=== PATIENT | female | born 1950 | race Two or more races ===

== ENCOUNTER → 2018-11-17 | Outpatient (CLI) | payer MEDICARE ==
[~2018-11-17] MED LIST: AZIT250 PO; CEPH500 PO; CODACE30 PO; CONEST1.25 PO; CYCL10 PO; ESTR.625; ESTR.625 PO; FERR325; LEVSOD137 PO; LEVSOD88 PO; Norco 5-325 Ta1 EACH PO; OXYACE5T PO; PENVK500 PO; Percocet 5-3251 EACH PO; SULTRIDS PO; TRAZ50; TRAZ50 PO
[2018-11-17 13:54] LABS: BASOPHILS ABSOLUTE AUTO 0.03 K/mm3 (0.00-0.23); BASOPHILS PERCENT AUTO 1 % (0-2); EOSINOPHILS ABSOLUTE AUTO 0.09 K/mm3 (0.00-0.68); EOSINOPHILS PERCENT AUTO 3 % (0-6); Hematocrit 34.6 % (33.0-51.0); Hemoglobin 11.3 g/dL (11.5-16.0); IMMATURE GRAN ABSOLUTE AUTO 0.01 K/mm3 (0.00-0.10); IMMATURE GRAN PERCENT AUTO 0 % (0-1); LYMPHOCYTES ABSOLUTE AUTO 1.39 K/mm3 (0.84-5.20); LYMPHOCYTES PERCENT AUTO 47 % (21-46); MONOCYTES ABSOLUTE AUTO 0.32 K/mm3 (0.16-1.47); MONOCYTES PERCENT AUTO 11 % (4-13); Mean Corpuscular HGB 31.5 pg (26.0-34.0); Mean Corpuscular HGB Conc 32.7 g/dL (31.5-36.5); Mean Corpuscular Volume 96 fL (80-100); Mean Platelet Volume 9.5 fL (9.1-12.4); NEUTROPHILS PERCENT AUTO 37 % (41-73); Platelet Count 163 K/mm3 (150-400); RDW Coefficient Variation 12.7 % (11.7-14.2); RDW Standard Deviation 44.5 fL (35.1-46.3); Red Blood Cell Count 3.59 M/mm3 (3.80-5.20); White Blood Cell Count 2.94 K/mm3 (4.00-11.30)
[2018-11-17 14:14] LABS: Alanine Aminotransfer (ALT/SGP 26 U/L (12-78); Albumin/Globulin Ratio 1.1 (0.8-1.8); Alk Phos 63 U/L (40-126); Anion Gap 9 mmol/L (6-16); Aspartate Aminotrans (AST/SGOT 19 U/L (12-37); Bilirubin, Total 0.3 mg/dL (0.1-1.0); Blood Urea Nitrogen 13 mg/dL (8-24); CO2, Blood 29 mmol/L (21-32); Chloride, Blood 104 mmol/L (98-108); Creatinine, Blood 0.81 mg/dL (0.40-1.00); Globulin, Blood 3.6 g/dL (2.2-4.0); Glomerular Filtration Rate >60 (60-); Glucose, Blood 88 mg/dL (70-99); Potassium, Blood 4.3 mmol/L (3.5-5.5); Sodium, Blood 142 mmol/L (136-145); Thyroid Stimulating Hormone 15.679 uIU/mL (0.360-4.800); Total Protein, Blood 7.6 g/dL (6.4-8.2)
== END | disposition home or self-care (01) ==
LOC: LAB SHORT 13:50 → LAB EV 13:50
PROVIDERS: Physician Assistant
DX: E03.9 Hypothyroidism, unspecified (principal)
CPT/HCPCS: 80053; 84443; 85025

== ENCOUNTER 2019-10-30 17:25 | Day surgery (SDC) | payer MEDICARE, OTHER ==
[~2019-10-30] VITALS: Ht 134.6 cm; Wt 51.2 kg
[~2019-10-30 17:25] MED LIST changes: -LEVSOD137 PO; +Synthroid88 MCG PO
[2019-10-30 17:43] LABS: Source, Urine Clean Catch
[2019-10-30 18:04] LABS: Bilirubin, Urine Neg (Neg); Blood, Urine Neg (Neg); Glucose Qualitative, Urine Neg (Neg); Ketones, Urine Neg (Neg); Leukocyte Esterase, Urine Neg (Neg); Nitrite, Urine Neg (Neg); Protein, Urine Neg (Neg); Specific Gravity, Urine 1.015 (1.003-1.022); Urobilinogen, Urine NORM (Normal)
[2019-10-30 18:05] LABS: Appearance, Urine Clear (Clear); Color, Urine Yellow (P-Yellow)
[2019-10-30 18:06] LABS: BASOPHILS ABSOLUTE AUTO 0.03 K/mm3 (0.00-0.23); BASOPHILS PERCENT AUTO 1 % (0-2); EOSINOPHILS ABSOLUTE AUTO 0.07 K/mm3 (0.00-0.68); EOSINOPHILS PERCENT AUTO 2 % (0-6); Hematocrit 34.5 % (33.0-51.0); Hemoglobin 11.2 g/dL (11.5-16.0); IMMATURE GRAN PERCENT AUTO 0 % (0-1); LYMPHOCYTES ABSOLUTE AUTO 1.55 K/mm3 (0.84-5.20); LYMPHOCYTES PERCENT AUTO 37 % (21-46); MONOCYTES ABSOLUTE AUTO 0.33 K/mm3 (0.16-1.47); MONOCYTES PERCENT AUTO 8 % (4-13); Mean Corpuscular HGB 32.2 pg (26.0-34.0); Mean Corpuscular HGB Conc 32.5 g/dL (31.5-36.5); Mean Corpuscular Volume 99 fL (80-100); Mean Platelet Volume 10.3 fL (9.1-12.4); NEUTROPHILS ABSOLUTE AUTO 2.16 K/mm3 (1.96-9.15); NEUTROPHILS PERCENT AUTO 52 % (41-73); Platelet Count 153 K/mm3 (150-400); RDW Coefficient Variation 13.2 % (11.7-14.2); RDW Standard Deviation 47.1 fL (35.1-46.3); Red Blood Cell Count 3.48 M/mm3 (3.80-5.20); White Blood Cell Count 4.14 K/mm3 (4.00-11.30)
[2019-10-30 18:21] LABS: Alanine Aminotransfer (ALT/SGP 82 U/L (12-78); Albumin, Blood 3.6 g/dL (3.4-5.0); Albumin/Globulin Ratio 1.2 (0.8-1.8); Alk Phos 70 U/L (50-136); Anion Gap 5 mmol/L (6-16); Aspartate Aminotrans (AST/SGOT 44 U/L (12-37); Bilirubin, Total 0.5 mg/dL (0.1-1.0); Blood Urea Nitrogen 14 mg/dL (8-24); Bun/Creatinine Ratio 16.9 (12.0-20.0); CO2, Blood 28 mmol/L (21-32); Calcium, Blood 8.8 mg/dL (8.5-10.1); Chloride, Blood 106 mmol/L (98-108); Creatinine, Blood 0.83 mg/dL (0.40-1.00); Globulin, Blood 2.9 g/dL (2.2-4.0); Glomerular Filtration Rate >60 (60-); Glucose, Blood 136 mg/dL (70-99); Potassium, Blood 3.6 mmol/L (3.5-5.5); Sodium, Blood 139 mmol/L (136-145); Total Protein, Blood 6.5 g/dL (6.4-8.2)
[2019-10-30] MEDS ORDERED: NAPR500EC PO (18:36)
[2019-10-30 22:10] LABS: International Normalized Ratio 1.06; Prothrombin Time Results 11.2 Sec (9.7-11.5)
[2019-10-30 23:39] LABS: Creatine Kinase MB 1.8 ng/mL (0.0-3.6); Creatine Kinase MB Index 1.8 (0.0-4.0); Troponin I 0.259 ng/mL (0.000-0.040)
--- NOTE | 2019-10-31 00:04 | NUR ---
PT TO ICU 9 FROM ED. PT ABLE TO INDEPENDENTLY TRANSFER TO ICU BED WITH NO DIFFICULTY. PT SPEAKS [place] PRIMARILY BUT IS ABLE TO UNDERSTAND MODERATE AMOUNT OF MALAY AND SPEAKS "SOME MALAY" PER FAMILY. FAMILY AT BEDSIDE TO ASSIST IN COMPLETING ADMISSION. PT DENIES CHEST PAIN OR ABDOMINAL PAIN AT THIS TIME. PT STATES "THAT MEDICINE MADE ME BETTER, I CAN GO HOME". PT PLEASANT AND COOPERATIVE WITH CARE. CARDIOLOGY CONSULT CALLED, DR. VELA TO SEE PT IN AM. ECHO IN AM. PT AND FAMILY UPDATED ON PT'S STATUS AND PLAN OF CARE. HEPARIN GTT RUNNING INTO 20G LAC @ 13 UNITS/KG/HR (9.9 ML/HR) AT DOSING WT OF 38 KG, MANAGED BY PHARMACY. FAMILY REMAINS AT BEDSIDE, PT DENIES NEEDS AT THIS TIME. SEE FULL ADMISSION HISTORY AND ASSESSMENT.
[2019-10-31 04:10] LABS: BASOPHILS ABSOLUTE AUTO 0.03 K/mm3 (0.00-0.23); BASOPHILS PERCENT AUTO 1 % (0-2); EOSINOPHILS ABSOLUTE AUTO 0.06 K/mm3 (0.00-0.68); EOSINOPHILS PERCENT AUTO 2 % (0-6); Hematocrit 33.1 % (33.0-51.0); Hemoglobin 10.5 g/dL (11.5-16.0); IMMATURE GRAN ABSOLUTE AUTO 0.01 K/mm3 (0.00-0.10); IMMATURE GRAN PERCENT AUTO 0 % (0-1); LYMPHOCYTES ABSOLUTE AUTO 1.31 K/mm3 (0.84-5.20); LYMPHOCYTES PERCENT AUTO 32 % (21-46); MONOCYTES PERCENT AUTO 10 % (4-13); Mean Corpuscular HGB 31.5 pg (26.0-34.0); Mean Corpuscular HGB Conc 31.7 g/dL (31.5-36.5); Mean Corpuscular Volume 99 fL (80-100); Mean Platelet Volume 10.2 fL (9.1-12.4); NEUTROPHILS ABSOLUTE AUTO 2.29 K/mm3 (1.96-9.15); NEUTROPHILS PERCENT AUTO 56 % (41-73); Platelet Count 134 K/mm3 (150-400); RDW Coefficient Variation 13.1 % (11.7-14.2); RDW Standard Deviation 47.8 fL (35.1-46.3); Red Blood Cell Count 3.33 M/mm3 (3.80-5.20)
[2019-10-31 04:32] LABS: Anion Gap 7 mmol/L (6-16); Blood Urea Nitrogen 12 mg/dL (8-24); Bun/Creatinine Ratio 15.2 (12.0-20.0); CO2, Blood 24 mmol/L (21-32); Chloride, Blood 111 mmol/L (98-108); Cholesterol 133 mg/dL (50-200); Creatinine, Blood 0.79 mg/dL (0.40-1.00); Glomerular Filtration Rate >60 (60-); Glucose, Blood 88 mg/dL (70-99); Potassium, Blood 3.8 mmol/L (3.5-5.5); Sodium, Blood 142 mmol/L (136-145); Triglycerides 60 mg/dL (30-160); Very Low Density Lipoprot Chol 12 mg/dL (6-32)
[2019-10-31 04:33] LABS: CHOL/HDL RATIO 2.2; HDL Cholesterol 61 mg/dL (>39); Low Density Lipoprotein Chol 60 mg/dL (0-110)
--- NOTE | 2019-10-31 06:03 | NUR ---
SHIFT SUMMARY NO ACUTE CHANGES SINCE ADMISSION. PT CONTINUES TO DENY CHEST OR ABDOMINAL PAIN AT THIS TIME. PT REPORTS INTERMITTENT TINGLING IN LEFT FOOT THAT BEGAN SEVERAL MONTHS AGO AND SEEMS TO BE WORSENING. PT HAS NOT GOTTEN OUT OF BED AND HAS NOT VOIDED SINCE ADMISSION. PT CURRENTLY SITTING UP IN BED EATING TOAST AND DRINKING WATER. FAMILY REMAINS AT BEDSIDE. ALL VSS. HEPARIN GTT REMAINS AT 13 UNITS/KG/HR. WILL REPORT TO DAYSHIFT NURSE.
--- NOTE | 2019-10-31 07:22 | NUR ---
PT AWAKE IN BED, ASSISTED TO BR; TOLERATED WELL. FAMILY AT BEDSIDE. PT DENIES C/O PAIN TO CHEST, DENIES PRESSURE, DENIES NAUSEA. HEP GTT INCREASED TO 14UNITS PER PHARMACY.
[2019-10-31 07:52] LABS: Creatine Kinase MB 1.8 ng/mL (0.0-3.6); Creatine Kinase MB Index 1.9 (0.0-4.0); Troponin I 0.246 ng/mL (0.000-0.040)
--- NOTE | 2019-10-31 08:24 | NUR ---
PT NOW NPO FOR POSSIBLE ANGIOGRAM. QUESTIONS ANSWERED FROM PT AND PT'S FAMILY. PT WOULD LIKE TO PROCEED WITH ANGIOGRAM BUT HAS MORE QUESTIONS FOR ANIMAL CARE SERVICE WORKER. DR MIRIAN AGUILAR. PT SPEAKS SOME FRENCH BUT PRIMARY LANGUAGE IS TAMAZIGHT. FAMILY AT BEDSIDE TO TRANSLATE. WORD PROCESSOR OPERATOR AT BEDSIDE.
--- NOTE | 2019-10-31 08:57 | NUR ---
PT SPOKE WITH FAMILY AND AND WISHES TO HAVE CODE STATUS CHANGED TO FULL CODE. PURPLE BAND REMOVED; WILL NOTIFY MD
--- NOTE | 2019-10-31 11:40 | NUR ---
Echocardiogram completed.
--- NOTE | 2019-10-31 13:11 | NUR ---
DR VELA UPDATED ON PT'S DECISION TO PROCEED WITH ANGIOGRAM. PT W/O COMPLAINTS VISITING WITH FAMILY. BP IMPROVED. GOOD URINE OUTPUT W LASIX.
--- NOTE | 2019-10-31 14:09 | NUR ---
DR VELA CONSENTED PT FOR R AND L HEART CATH. ECHO RESULTS GIVEN TO PT AND PT'S FAMILY. HEPARIN GTT DC'D PER DR VELA
[2019-10-31 14:53] LABS: Creatine Kinase MB 2.3 ng/mL (0.0-3.6); Creatine Kinase MB Index 1.9 (0.0-4.0); Troponin I 0.259 ng/mL (0.000-0.040)
--- NOTE | 2019-10-31 16:38 | NUR ---
Spiritual Care initial note: Mrs. Zhang appears weak, but smiles easily. He was at bedside and appears quite devoted. Pt states she is hopeful for recovery and asked me to pray. I provided prayer, affirmation of love, and offered continued support.
--- NOTE | 2019-10-31 18:42 | NUR ---
DR VELA CALLED THIS RN FOR UPDATE ON PT. LISINOPRIL TO BE STARTED IN AM. LASIX TO BE CONSIDERED IN AM. PT TO BE SEEN OP BY [facility] FOR SEVERE PULMONARY HTN. PT BACK TO ICU 9 FROM [facility]IMARY SPECIAL EDUCATION TEACHER AT 1844.
--- NOTE | 2019-10-31 20:00 | NUR ---
PT BACK FROM HEART CENTER AT 1844. PT AWAKE, ALERT, ASKING FOR DINNER. REPORT TAKEN AT THIS TIME. TR BAND TO R RADIAL. TEG TO R BRACHIAL. R HAND SLIGHTLY SWOLLEN C/O TO LEFT HAND. HEART CENTER AT BEDSIDE FOR THIS ASSESSMENT. PT DENIES C/O PAIN/NUMBNESS/TINGLING TO R HAND. R HAND WARM, PINK, CAP REFILL <3 SEC. VSS. REPORT GIVEN TO ONCOMING RN RAVIN.
--- NOTE | 2019-10-31 21:28 | NUR ---
ASSUMED CARE OF PT, REPORT RCV'D FROM MAURICE ZHAO. PT BACK FROM TRAVELERS' AID WORKER SITTING UP AND EATING DINNER WITHOUT DIFFICULTY. PT'S FAMILY AT BEDSIDE UPDATED ON PT'S STATUS AND PLAN OF CARE. PT HAS TR BAND ON RIGHT RADIAL WITH 9 CC'S OF AIR, PLACED AT 1815, WILL BEGIN REMOVING AIR @2215. RADIAL SITE SOFT, NONTENDER, DISTAL PULSES/PALLOR WNL, HAND/FINGERS APPEAR SLIGHTLY MORE SWOLLEN THAN LEFT HAND-PER DAYSHIFT NURSE THIS SWELLING REMAINS UNCHANGED SINCE ARRIVING FROM TRAVELERS' AID WORKER. PT REPORTS SLIGHT NUMBNESS IN FINGERS-REMOVED 2 CC AIR. PT ABLE TO MOVE FINGERS WITHOUT DIFFICULTY. RIGHT BRACHIAL ACCESS SITE WITH KRISTA AND CLEAR DRESSING, MINIMAL AMOUNT OF BLEEDING FROM SITE-UNCHANGED SINCE ARRIVAL. DRESSING C/D/I, NO EVIDENCE OF HEMATOMA AT EITHER SITE. PT DENIES CHEST OR ABDOMINAL PAIN OR SHORTNESS OF BREATH, PT REPORTS HEADACHE THAT SHE ATTRIBUTES TO "BEING TIRED". PT GIVEN HER NIGHTLY SLEEPING PILL, TYLENOL AND REPOSITIONED IN BED. SEE FULL SHIFT ASSESSMENT
--- NOTE | 2019-10-31 23:58 | NUR ---
TR BAND OFF. CAP REFILL<3 SECONDS, DISTAL PULSES/PALLOR WNL, NO BLEEDING/HEMATOMA/TENDERNESS. CLEAR DRESSING APPLED AND ARMBOARD REAPPLIED. WILL CONTINUE TO MONITOR.
--- NOTE | 2019-11-01 06:06 | NUR ---
SHIFT SUMMARY NO ACUTE CHANGES OVERNIGHT. PT SLEPT SOUNDLY AND DENIED NEEDS. TR BAND REMOVED AT 0000, ARMBOARD REMAINS IN PLACE. RADIAL SITE SOFT/NONTENDER, DISTAL PULSES/PALLOR WNL, NO BLEEDING OR HEMATOMA NOTICED. RIGHT BRACHIAL SITE REMAINS UNCHANGED FROM BEGINNING OF SHIFT. VSS T/O SHIFT. PT ANXIOUS TO GO HOME. FAMILY REMAINS AT BEDSIDE. WILL REPORT TO DAYSHIFT NURSE.
--- NOTE | 2019-11-01 08:22 | NUR ---
PT AWAKE IN BED EATING BREAKFAST. DENIES ALL COMPLAINTS. DENIES C/O CHEST PAIN/PRESURE/NAUSEA/SOB. RIGHT ARTERIAL SITE WITH OP-SITE C/D/I, NO SWELLING/BLEEDING/PAIN. RIGHT VENOUS BRACHIAL SITE WITH TEG UNCHANGED FROM PEVIOUS ASSESSMENT. HAND REMAINS SLIGHTLY EDEMATOUS; CIRC CHECK WNL, HAND PINK, WARM, CAP REFILL < 3 SEC. PT IS HOPEFUL THAT SHE WILL BE DISCHARGED HOME TODAY.
[2019-11-01] MEDS ORDERED: ACET325 PO (12:25)
[2019-11-01] MEDS ORDERED: Lipitor20 MG PO (12:26)
[2019-11-01] MEDS ORDERED: ASPI81CH PO (12:27)
[2019-11-01] MEDS ORDERED: LISI5 PO (12:27)
[2019-11-01] MEDS ORDERED: METO25 PO (12:28)
--- NOTE | 2019-11-01 13:18 | NUR ---
DR ANN BAUTISTA IN TO SEE PT THIS MID AM. NEW ORDERS TO DISCHARGE HOME IF OKAY WITH CARDIOLOGY. DR VELA CALLED, MESSAGE LEFT W OFFICE. PT SITTING UP IN BED EATING LUNCH AND VISITING W FAMILY. RX'S CALLED INTO [facility] PER PT REQUEST
--- NOTE | 2019-11-01 13:28 | NUR ---
PER DR VELA; PT MAY BE DISCHARGED HOME. MEDICATIONS REVIEWED. CARDIOTHORACIC SURGERY [facility] WILL BE CONTACTING PT THIS WEEK FOR AN APPOINTMENT
--- NOTE | 2019-11-01 16:05 | NUR ---
RX'S CALLED INTO [facility]. FOLLOW UP APPT MADE W [facility] AND PCP. VERBAL AND WRITTEN DC INFO GIVEN ON MEDS, DIET, CHF, MITRAL STENOSIS/REGURG, AORTIC STENOSIS, RADIAL ACCESS. PT EMOTIONAL AND TEARFUL, C/O FEELING DIZZY WITH SOME NUMBNESS TO TOES; PT HYPERVENTILATING. PT CALMED AND REASSURED. PT VERY CONCERNED ABOUT TAKING NEW MEDS. FAMILY AT BEDSIDE AND INVOLVED W EDUCATION. ORTHOSTATIC BP'S TAKEN PT WAS CONCERNED BP MIGHT BE LOW. ORTHOSTATIC PRESSURES AND HEART RATE WNL/STABLE. THIS WAS COMFORTING TO PT. PT CALMED DOWN AND BEGAN PARTICIPATING IN DISCHARGE EDUCATION. PT AND FAMILY INSTRUCTED TO CALL ICU OR PCP WITH ANY QUESTIONS OR CONCERNS. R RADIAL AND R VENOUS SITE REMAIN STABLE. WRIST IMMOBILIZER TO R WRIST. PT DC'D HOME IN STABLE CONDITION IN CARE OF HER FAMILY AT 1530.
== END 2019-11-01 15:30 | disposition home or self-care (01) ==
LOC: ER 17:25 → ICUW 21:26 → ICUE 22:16 → ICUW 22:16 → MHTC 22:20 → ICUW 22:21 → ICUE 22:21 → MHTC 22:21 → ICUW 11-01 15:30
PROVIDERS: Internal Medicine; Pharmacist; Physician Assistant
PROC: B2111ZZ Fluoroscopy of Multiple Coronary Arteries using Low Osmolar Contrast (ICD-10-PCS; principal; 2019-10-31)
PROC: 4A023N8 Measurement of Cardiac Sampling and Pressure, Bilateral, Percutaneous Approach (ICD-10-PCS; 2019-10-31)
DX: I08.0 Rheumatic disorders of both mitral and aortic valves (principal); F41.8 Other specified anxiety disorders; E03.9 Hypothyroidism, unspecified; K21.9 Gastro-esophageal reflux disease without esophagitis; R79.89 Other specified abnormal findings of blood chemistry; I11.0 Hypertensive heart disease with heart failure; I50.43 Acute on chronic combined systolic (congestive) and diastolic (congestive) heart failure; R10.9 Unspecified abdominal pain; R07.89 Other chest pain; D64.9 Anemia, unspecified; I27.20 Pulmonary hypertension, unspecified; Z88.2 Allergy status to sulfonamides; Z88.1 Allergy status to other antibiotic agents; Z79.899 Other long term (current) drug therapy; Z79.1 Long term (current) use of non-steroidal anti-inflammatories (NSAID)
CPT/HCPCS: 36415; 71260; 74177; 76937; 80048; 80053; 80061; 81003; 82550; 82553; 83690; 84484; 85025; 85610; 85730; 93005; 93010; 93306; 93456; 96361; 96374-59; 96375; 96376; 99152; 99153; 99285-25; A9270; C1769; C1894; J1170; J1644; J1940; J2250; J2405; J3010; J7030; Q9967

== ENCOUNTER 2019-11-05 00:40 | Emergency (ER) | payer MEDICARE, OTHER ==
[~2019-11-05] VITALS: Ht 152.4 cm; Wt 50.8 kg
[~2019-11-05 00:40] MED LIST changes: +ACET325 PO; +ASPI81CH PO; +LISI5 PO; +Lipitor20 MG PO; +METO25 PO; +NAPR500EC PO
[2019-11-05 02:02] LABS: Source, Urine Clean Catch
[2019-11-05 02:06] LABS: BASOPHILS ABSOLUTE AUTO 0.03 K/mm3 (0.00-0.23); BASOPHILS PERCENT AUTO 1 % (0-2); EOSINOPHILS PERCENT AUTO 4 % (0-6); Hematocrit 38.3 % (33.0-51.0); Hemoglobin 12.3 g/dL (11.5-16.0); IMMATURE GRAN ABSOLUTE AUTO 0.01 K/mm3 (0.00-0.10); IMMATURE GRAN PERCENT AUTO 0 % (0-1); LYMPHOCYTES PERCENT AUTO 36 % (21-46); MONOCYTES ABSOLUTE AUTO 0.34 K/mm3 (0.16-1.47); MONOCYTES PERCENT AUTO 8 % (4-13); Mean Corpuscular HGB 31.9 pg (26.0-34.0); Mean Corpuscular HGB Conc 32.1 g/dL (31.5-36.5); Mean Corpuscular Volume 99 fL (80-100); NEUTROPHILS ABSOLUTE AUTO 2.32 K/mm3 (1.96-9.15); NEUTROPHILS PERCENT AUTO 52 % (41-73); Platelet Count 209 K/mm3 (150-400); RDW Coefficient Variation 13.3 % (11.7-14.2); RDW Standard Deviation 48.4 fL (35.1-46.3); Red Blood Cell Count 3.86 M/mm3 (3.80-5.20)
[2019-11-05 02:07] LABS: Bilirubin, Urine Neg (Neg); Blood, Urine Neg (Neg); Glucose Qualitative, Urine Neg (Neg); Ketones, Urine Neg (Neg); Leukocyte Esterase, Urine Neg (Neg); Nitrite, Urine Neg (Neg); Protein, Urine Neg (Neg); Specific Gravity, Urine 1.015 (1.003-1.022); Urobilinogen, Urine NORM (Normal)
[2019-11-05 02:08] LABS: Appearance, Urine Clear (Clear); Color, Urine Yellow (P-Yellow)
[2019-11-05 02:24] LABS: Anion Gap 8 mmol/L (6-16); Blood Urea Nitrogen 11 mg/dL (8-24); Bun/Creatinine Ratio 16.2 (12.0-20.0); CO2, Blood 25 mmol/L (21-32); Calcium, Blood 9.5 mg/dL (8.5-10.1); Chloride, Blood 108 mmol/L (98-108); Creatinine, Blood 0.68 mg/dL (0.40-1.00); Free Thyroxine 0.83 ng/dL (0.70-1.60); Glomerular Filtration Rate >60 (60-); Glucose, Blood 106 mg/dL (70-99); Potassium, Blood 3.9 mmol/L (3.5-5.5); Sodium, Blood 141 mmol/L (136-145)
[2019-11-05] MEDS ORDERED: Ativan0.5 MG PO (03:41)
[2019-11-05] MEDS ORDERED: Diflucan150 MG PO (03:41)
== END 2019-11-05 05:55 | disposition home or self-care (01) ==
LOC: ER 00:40
PROVIDERS: Emergency Medicine
DX: F41.9 Anxiety disorder, unspecified (principal); L29.8 Other pruritus; F32.9 Major depressive disorder, single episode, unspecified; E03.9 Hypothyroidism, unspecified; D64.9 Anemia, unspecified; K21.9 Gastro-esophageal reflux disease without esophagitis; Z91.048 Other nonmedicinal substance allergy status; Z88.2 Allergy status to sulfonamides; Z88.1 Allergy status to other antibiotic agents; Z79.899 Other long term (current) drug therapy; Z79.82 Long term (current) use of aspirin
CPT/HCPCS: 36415; 80048; 81003; 84439; 84443; 85025; 93005; 93010; 96374; 96375; 99283-25; J1200; J2060

== ENCOUNTER 2020-01-13 22:18 | Observation (INO) | payer MEDICARE, OTHER ==
[~2020-01-13] VITALS: Ht 142.2 cm; Wt 48.8 kg
[~2020-01-13 22:18] MED LIST changes: +Ativan0.5 MG PO; +Diflucan150 MG PO
[2020-01-13] MEDS ORDERED: COLCRYS0.6 M1 PO (22:35)
[2020-01-13] MEDS ORDERED: METO25 PO (22:36)
[2020-01-13] MEDS ORDERED: ASCO500 PO (22:36)
[2020-01-13] MEDS ORDERED: OXYC5 PO (22:36)
[2020-01-13] MEDS ORDERED: VITAMIN D-40010 MCG PO (22:37)
[2020-01-13] MEDS ORDERED: EUTHYROX88 MCG PO (22:37)
[2020-01-13] MEDS ORDERED: FERSU300 PO (22:37)
[2020-01-13] MEDS ORDERED: LORA.5 PO (22:37)
[2020-01-13] MEDS ORDERED: TRAZ50 PO (22:38)
[2020-01-13 22:49] LABS: BASOPHILS ABSOLUTE AUTO 0.05 K/mm3 (0.00-0.23); BASOPHILS PERCENT AUTO 1 % (0-2); EOSINOPHILS ABSOLUTE AUTO 0.31 K/mm3 (0.00-0.68); EOSINOPHILS PERCENT AUTO 6 % (0-6); Hematocrit 31.1 % (33.0-51.0); Hemoglobin 9.8 g/dL (11.5-16.0); IMMATURE GRAN ABSOLUTE AUTO 0.01 K/mm3 (0.00-0.10); IMMATURE GRAN PERCENT AUTO 0 % (0-1); LYMPHOCYTES ABSOLUTE AUTO 1.49 K/mm3 (0.84-5.20); LYMPHOCYTES PERCENT AUTO 30 % (21-46); MONOCYTES ABSOLUTE AUTO 0.56 K/mm3 (0.16-1.47); MONOCYTES PERCENT AUTO 11 % (4-13); Mean Corpuscular HGB 30.9 pg (26.0-34.0); Mean Corpuscular HGB Conc 31.5 g/dL (31.5-36.5); Mean Corpuscular Volume 98 fL (80-100); Mean Platelet Volume 9.5 fL (9.1-12.4); NEUTROPHILS ABSOLUTE AUTO 2.51 K/mm3 (1.96-9.15); NEUTROPHILS PERCENT AUTO 51 % (41-73); Platelet Count 299 K/mm3 (150-400); RDW Standard Deviation 54.1 fL (35.1-46.3); Red Blood Cell Count 3.17 M/mm3 (3.80-5.20); White Blood Cell Count 4.93 K/mm3 (4.00-11.30)
[2020-01-13 23:04] LABS: Source, Urine Clean Catch
[2020-01-13 23:07] LABS: Bilirubin, Urine Neg (Neg); Blood, Urine 1+ (Neg); Glucose Qualitative, Urine Neg (Neg); Ketones, Urine Neg (Neg); Leukocyte Esterase, Urine 3+ (Neg); Nitrite, Urine Neg (Neg); Protein, Urine Neg (Neg); Urobilinogen, Urine NORM (Normal)
[2020-01-13 23:09] LABS: Alanine Aminotransfer (ALT/SGP 20 U/L (12-78); Albumin, Blood 3.5 g/dL (3.4-5.0); Alk Phos 104 U/L (50-136); Anion Gap 6 mmol/L (6-16); Aspartate Aminotrans (AST/SGOT 29 U/L (12-37); Bilirubin, Total 0.2 mg/dL (0.1-1.0); Blood Urea Nitrogen 12 mg/dL (8-24); CO2, Blood 28 mmol/L (21-32); Calcium, Blood 8.7 mg/dL (8.5-10.1); Chloride, Blood 103 mmol/L (98-108); Globulin, Blood 3.5 g/dL (2.2-4.0); Glomerular Filtration Rate >60 (60-); Glucose, Blood 98 mg/dL (70-99); Potassium, Blood 4.2 mmol/L (3.5-5.5); Sodium, Blood 137 mmol/L (136-145); Troponin I 0.066 ng/mL (0.000-0.040)
[2020-01-13 23:10] LABS: International Normalized Ratio 1.08; Prothrombin Time Results 11.5 Sec (9.7-11.5)
[2020-01-13 23:14] LABS: Appearance, Urine Hazy (Clear); Color, Urine Pale Yellow (P-Yellow)
[2020-01-13 23:16] LABS: Bacteria Many /hpf; Red Blood Cells, Urine 0-2 /hpf (0-2); Squamous Epithelial Cells Not Seen /hpf (Few); White Blood Cells, Urine TNTC /hpf (0-5)
[2020-01-14 05:31] LABS: Hematocrit 32.9 % (33.0-51.0); Hemoglobin 10.6 g/dL (11.5-16.0); Mean Corpuscular HGB 31.5 pg (26.0-34.0); Mean Corpuscular HGB Conc 32.2 g/dL (31.5-36.5); Mean Corpuscular Volume 98 fL (80-100); Mean Platelet Volume 9.1 fL (9.1-12.4); Platelet Count 299 K/mm3 (150-400); RDW Coefficient Variation 14.8 % (11.7-14.2); RDW Standard Deviation 53.8 fL (35.1-46.3); Red Blood Cell Count 3.36 M/mm3 (3.80-5.20); White Blood Cell Count 4.52 K/mm3 (4.00-11.30)
[2020-01-14 05:46] LABS: International Normalized Ratio 1.07; Prothrombin Time Results 11.4 Sec (9.7-11.5)
[2020-01-14 05:49] LABS: Alanine Aminotransfer (ALT/SGP 17 U/L (12-78); Albumin, Blood 3.4 g/dL (3.4-5.0); Albumin/Globulin Ratio 0.9 (0.8-1.8); Alk Phos 94 U/L (50-136); Anion Gap 7 mmol/L (6-16); Aspartate Aminotrans (AST/SGOT 22 U/L (12-37); Bilirubin, Total 0.3 mg/dL (0.1-1.0); Blood Urea Nitrogen 9 mg/dL (8-24); Bun/Creatinine Ratio 14.6 (12.0-20.0); CO2, Blood 26 mmol/L (21-32); Calcium, Blood 8.8 mg/dL (8.5-10.1); Chloride, Blood 105 mmol/L (98-108); Creatinine, Blood 0.62 mg/dL (0.40-1.00); Globulin, Blood 3.6 g/dL (2.2-4.0); Glomerular Filtration Rate >60 (60-); Glucose, Blood 91 mg/dL (70-99); Sodium, Blood 138 mmol/L (136-145)
--- NOTE | 2020-01-14 09:19 | NUR ---
ADMISSION PT ARRIVED TO UNIT AT APROX 0900 FROM ER. PT C/O WEAKNESS FOR TWO DAYS THAT WORSENED YESTERDAY. PT POST OP APROX 3 WEEKS FROM OPEN HEART SURGERY AND OPEN ABDOMINAL SURGERY, HEALING MIDLINE INCISION TO CHEST ABDOMEN APPEARS WNL. PT C/O UPPER ABDOMINAL PAIN THAT RADIATES FROM LUQ, TENDER WITH PALPATION. LUNG SOUNDS CLEAR, DENIES SOB OR CHEST PAIN AT THIS TIME
[2020-01-14 10:19] LABS: Troponin I 0.079 ng/mL (0.000-0.040)
[2020-01-14 10:21] LABS: Thyroid Stimulating Hormone 58.4 uIU/mL (0.360-4.800)
--- NOTE | 2020-01-14 16:18 | NUR ---
ECHOCARDIOGRAM COMPLETED
[2020-01-14 17:40] LABS: CPK Creatine Kinase 46 U/L (26-193)
[2020-01-14] MEDS ORDERED: CITA20 PO (17:54)
[2020-01-14] MEDS ORDERED: Jantoven2 MG PO (18:01)
--- NOTE | 2020-01-14 19:17 | NUR ---
DISCHARGE PT DISCHARGED HOME FROM UNIT AT APROX 1830. PT AND GIVEN WRITTEN AND VERBAL DISCHARGE INSTRUCTIONS- VERBALIZED UNDERSTANDING. NEW PERSCRIPTIONS FAXED TO [facility]. IV REMOVED. WHEELCHAIR TO CAR.
== END 2020-01-14 18:33 | disposition home or self-care (01) ==
LOC: ER 22:18 → ERHOLD 22:19 → SURS 01-14 08:25
PROVIDERS: Emergency Medicine; ADMIT Internal Medicine
DX: N39.0 Urinary tract infection, site not specified (principal); R20.2 Paresthesia of skin; R94.39 Abnormal result of other cardiovascular function study; F41.9 Anxiety disorder, unspecified; E03.9 Hypothyroidism, unspecified; R79.89 Other specified abnormal findings of blood chemistry; M19.90 Unspecified osteoarthritis, unspecified site; K91.72 Accidental puncture and laceration of a digestive system organ or structure during other procedure; K21.9 Gastro-esophageal reflux disease without esophagitis; Z88.2 Allergy status to sulfonamides; Z79.899 Other long term (current) drug therapy; Z95.2 Presence of prosthetic heart valve; Z79.01 Long term (current) use of anticoagulants; Z88.8 Allergy status to other drugs, medicaments and biological substances; Z88.1 Allergy status to other antibiotic agents
CPT/HCPCS: 36415; 70450; 71045; 71046; 80053; 81001; 82550; 83605; 83735; 83880; 84443; 84484; 85025; 85027; 85610; 87077; 87086; 87186; 93005; 93010; 93306; 97110; 97116; 97161; 99285-25; A9270; A9270-GY; G0378; J0696; J7030

== ENCOUNTER 2020-02-07 23:18 | Observation (INO) | payer MEDICARE, OTHER ==
[~2020-02-07] VITALS: Ht 139.7 cm; Wt 46.3 kg
[~2020-02-07 23:18] MED LIST changes: +ASCO500 PO; +CITA20 PO; +COLCRYS0.6 M1 PO; +EUTHYROX88 MCG PO; +FERSU300 PO; +Jantoven2 MG PO; +LORA.5 PO; +OXYC5 PO; +VITAMIN D-40010 MCG PO
[2020-02-07 23:58] LABS: BASOPHILS ABSOLUTE AUTO 0.05 K/mm3 (0.00-0.23); BASOPHILS PERCENT AUTO 1 % (0-2); EOSINOPHILS ABSOLUTE AUTO 0.15 K/mm3 (0.00-0.68); EOSINOPHILS PERCENT AUTO 4 % (0-6); Hematocrit 36.1 % (33.0-51.0); Hemoglobin 11.5 g/dL (11.5-16.0); IMMATURE GRAN PERCENT AUTO 0 % (0-1); LYMPHOCYTES ABSOLUTE AUTO 1.84 K/mm3 (0.84-5.20); LYMPHOCYTES PERCENT AUTO 52 % (21-46); MONOCYTES ABSOLUTE AUTO 0.38 K/mm3 (0.16-1.47); MONOCYTES PERCENT AUTO 11 % (4-13); Mean Corpuscular HGB Conc 31.9 g/dL (31.5-36.5); Mean Corpuscular Volume 97 fL (80-100); Mean Platelet Volume 9.5 fL (9.1-12.4); NEUTROPHILS ABSOLUTE AUTO 1.11 K/mm3 (1.96-9.15); NEUTROPHILS PERCENT AUTO 32 % (41-73); Platelet Count 215 K/mm3 (150-400); RDW Coefficient Variation 13.5 % (11.7-14.2); RDW Standard Deviation 48.5 fL (35.1-46.3); Red Blood Cell Count 3.71 M/mm3 (3.80-5.20); White Blood Cell Count 3.53 K/mm3 (4.00-11.30)
[2020-02-08 00:18] LABS: Alanine Aminotransfer (ALT/SGP 18 U/L (12-78); Albumin, Blood 3.9 g/dL (3.4-5.0); Albumin/Globulin Ratio 1.1 (0.8-1.8); Alk Phos 103 U/L (50-136); Anion Gap 5 mmol/L (6-16); Aspartate Aminotrans (AST/SGOT 22 U/L (12-37); Bilirubin, Total 0.2 mg/dL (0.1-1.0); Blood Urea Nitrogen 11 mg/dL (8-24); Bun/Creatinine Ratio 18.6 (12.0-20.0); CO2, Blood 28 mmol/L (21-32); Calcium, Blood 8.9 mg/dL (8.5-10.1); Chloride, Blood 108 mmol/L (98-108); Creatinine, Blood 0.59 mg/dL (0.40-1.00); Globulin, Blood 3.6 g/dL (2.2-4.0); Glomerular Filtration Rate >60 (60-); Glucose, Blood 108 mg/dL (70-99); Sodium, Blood 141 mmol/L (136-145); Total Protein, Blood 7.5 g/dL (6.4-8.2); Troponin I 0.134 ng/mL (0.000-0.040)
[2020-02-08 00:54] LABS: International Normalized Ratio 3.57; Prothrombin Time Results 35.5 Sec (9.7-11.5)
[2020-02-08 08:25] LABS: Hematocrit 31.5 % (33.0-51.0); Mean Corpuscular HGB 30.9 pg (26.0-34.0); Mean Corpuscular HGB Conc 31.7 g/dL (31.5-36.5); Mean Corpuscular Volume 97 fL (80-100); Mean Platelet Volume 9.9 fL (9.1-12.4); Platelet Count 188 K/mm3 (150-400); RDW Coefficient Variation 13.5 % (11.7-14.2); RDW Standard Deviation 48.8 fL (35.1-46.3); Red Blood Cell Count 3.24 M/mm3 (3.80-5.20); White Blood Cell Count 3.39 K/mm3 (4.00-11.30)
[2020-02-08 08:59] LABS: Alanine Aminotransfer (ALT/SGP 16 U/L (12-78); Albumin, Blood 3.3 g/dL (3.4-5.0); Alk Phos 77 U/L (50-136); Anion Gap 3 mmol/L (6-16); Aspartate Aminotrans (AST/SGOT 16 U/L (12-37); Bilirubin, Total 0.2 mg/dL (0.1-1.0); Blood Urea Nitrogen 10 mg/dL (8-24); Bun/Creatinine Ratio 20.1 (12.0-20.0); CO2, Blood 27 mmol/L (21-32); Calcium, Blood 8.5 mg/dL (8.5-10.1); Chloride, Blood 110 mmol/L (98-108); Globulin, Blood 3.3 g/dL (2.2-4.0); Glomerular Filtration Rate >60 (60-); Glucose, Blood 90 mg/dL (70-99); Potassium, Blood 3.9 mmol/L (3.5-5.5); Sodium, Blood 140 mmol/L (136-145); Total Protein, Blood 6.6 g/dL (6.4-8.2); Troponin I 0.134 ng/mL (0.000-0.040)
[2020-02-08] MEDS ORDERED: TRAZ50 PO (10:12)
[2020-02-08] MEDS ORDERED: ACET325 PO (10:12)
== END 2020-02-08 10:45 | disposition other institution (70) ==
LOC: ER 23:18 → ERHOLD 23:19
PROVIDERS: Emergency Medicine; ADMIT Internal Medicine
DX: R07.89 Other chest pain (principal); F41.1 Generalized anxiety disorder; E03.9 Hypothyroidism, unspecified; F32.9 Major depressive disorder, single episode, unspecified; Z95.2 Presence of prosthetic heart valve; K21.9 Gastro-esophageal reflux disease without esophagitis; Z79.899 Other long term (current) drug therapy; Z88.2 Allergy status to sulfonamides; Z88.8 Allergy status to other drugs, medicaments and biological substances; Z88.1 Allergy status to other antibiotic agents; N39.0 Urinary tract infection, site not specified; D64.9 Anemia, unspecified; M19.90 Unspecified osteoarthritis, unspecified site
CPT/HCPCS: 71045; 80053; 82550; 83880; 84484; 85025; 85027; 85610; 93005; 93010; 96361; 96374; 96375; 99285-25; A9270-GY; G0378; J2270; J2405